=== PATIENT | male | born 1960 | race Caucasian/White ===

== ENCOUNTER 2018-01-13 15:05 | Inpatient (IN) ==
[2018-01-13] MEDS ORDERED: ONDANSETRON 4 MG/2 ML VIAL IV PRN (20:36)
[2018-01-13] MEDS ORDERED: MORPHINE 2 MG/1 ML SYRINGE IV PRN (20:36)
[2018-01-13 21:18] LABS: Basophils # 0.1 10*3/uL (0.0-0.2); Basophils % 1.3 % (0.0-0.8); Eosinophils # 0.3 10*3/uL (0.0-0.87); Eosinophils % 3.4 % (0.00-10.9); Hematocrit 35.6 VOL% (42.0-52.0); Hemoglobin 11.8 GM/DL (14.0-18.0); Immature Granulocytes % 0.4 %; Immature Granulocytes Absolute 0.04 #; Lymphocytes % 20.7 % (21.2-54.2); Mean Corpuscular HGB Conc 33.1 GM/DL (32-36); Mean Corpuscular Hemoglobin 28 PG (27-34); Mean Platelet Volume 9.6 FL (9.6-12.0); Monocytes % 10.5 % (1.7-12.7); Neutrophils % 63.7 % (38.7-73.9); Platelet Count 404 T/CUMM (130-400); Red Blood Count 4.24 MC/CUMM (3.8-5.5); Red Cell Distribution Width 14.1 % (9.3-17.3); White Blood Count 9.5 T/CUMM (4-12)
[2018-01-13 21:47] LABS: Alanine Aminotransferase 15 U/L (16-61); Albumin 3.6 G/DL (3.4-5.0); Alkaline Phosphatase 97 U/L (45-117); Aspartate Amino Transferase 20 U/L (0-37); Bilirubin,Total < 0.39 MG/DL (0.2-1.0); Blood Urea Nitrogen 17 MG/DL (7-18); Calcium 9.5 MG/DL (8.5-10.1); Cholesterol 154 MG/DL (50-200); Glucose 98 MG/DL (74-106); HDL Cholesterol 38 MG/DL (40-60); Osmolality,Calculated 276.7 MOS/KG (273-304); Potassium 3.9 MMOL/L (3.5-5.1); Risk Ratio 4.05; Sodium 138 MMOL/L (136-145); Total Protein 7.5 G/DL (6.4-8.3); Triglycerides 81 MG/DL (2-150); VLDL CHOLESTEROL 16.2 MG/DL
[2018-01-13] MEDS: levETIRAcetam 500 MG TABLET PO SCH (22:07)
[2018-01-13] MEDS: risperiDONE 0.5 MG TABLET PO SCH (22:08)
[2018-01-13] MEDS: SODIUM CHLORIDE 0.9% 1,000 ML IV SCH (22:37)
[2018-01-14] MEDS: PANTOPRAZOLE 40 MG VIAL IV SCH (09:15)
[2018-01-14] MEDS: ATORVASTATIN 80 MG TABLET PO SCH (09:15)
[2018-01-14] MEDS: amLODIPine 5 MG TABLET PO SCH (09:17)
[2018-01-14] MEDS: FLUoxetine 10 MG CAPSULE PO SCH (09:17)
[2018-01-14] MEDS: levETIRAcetam 500 MG TABLET PO SCH ×2 (09:17→21:56)
[2018-01-14] MEDS: TAMSULOSIN 0.4 MG CAPSULE PO SCH (09:17)
[2018-01-14] MEDS: ASPIRIN 325 MG TABLET PO SCH (09:17)
[2018-01-14] MEDS: CLOPIDOGREL 75 MG TABLET PO SCH (09:21)
[2018-01-14] MEDS: ENOXAPARIN 40 MG/0.4 ML SYRINGE SUBCUT SCH (09:21)
[2018-01-14] MEDS: SODIUM CHLORIDE 0.9% 1,000 ML IV SCH ×3 (09:22→21:27)
[2018-01-14] MEDS: risperiDONE 0.5 MG TABLET PO SCH (21:56)
[2018-01-15] MEDS: SODIUM CHLORIDE 0.9% 1,000 ML IV SCH ×2 (07:13→13:41)
[2018-01-15] MEDS: ATORVASTATIN 80 MG TABLET PO SCH (08:59)
[2018-01-15] MEDS: amLODIPine 5 MG TABLET PO SCH ×2 (08:59→20:29)
[2018-01-15] MEDS: CLOPIDOGREL 75 MG TABLET PO SCH (08:59)
[2018-01-15] MEDS: ASPIRIN 325 MG TABLET PO SCH (08:59)
[2018-01-15] MEDS: levETIRAcetam 500 MG TABLET PO SCH ×2 (08:59→20:29)
[2018-01-15] MEDS: FLUoxetine 10 MG CAPSULE PO SCH (08:59)
[2018-01-15] MEDS: TAMSULOSIN 0.4 MG CAPSULE PO SCH (09:00)
[2018-01-15] MEDS: ENOXAPARIN 40 MG/0.4 ML SYRINGE SUBCUT SCH (09:07)
[2018-01-15] MEDS: PANTOPRAZOLE 40 MG VIAL IV SCH (09:08)
[2018-01-15] MEDS: risperiDONE 0.5 MG TABLET PO SCH (20:29)
[2018-01-16] MEDS: SODIUM CHLORIDE 0.9% 1,000 ML IV SCH ×3 (03:51→14:38)
[2018-01-16] MEDS: ATORVASTATIN 80 MG TABLET PO SCH (09:27)
[2018-01-16] MEDS: ASPIRIN 325 MG TABLET PO SCH (09:27)
[2018-01-16] MEDS: TAMSULOSIN 0.4 MG CAPSULE PO SCH (09:27)
[2018-01-16] MEDS: CLOPIDOGREL 75 MG TABLET PO SCH (09:27)
[2018-01-16] MEDS: ENOXAPARIN 40 MG/0.4 ML SYRINGE SUBCUT SCH (09:27)
[2018-01-16] MEDS: amLODIPine 5 MG TABLET PO SCH (09:27)
[2018-01-16] MEDS: PANTOPRAZOLE 40 MG VIAL IV SCH (09:27)
[2018-01-16] MEDS: levETIRAcetam 500 MG TABLET PO SCH (09:27)
[2018-01-16] MEDS: FLUoxetine 10 MG CAPSULE PO SCH (09:28)
[2018-01-16 12:04] VITALS: BP 159/107
== END 2018-01-16 15:19 | disposition home or self-care (01) | DRG 66 ==
LOC: N.2E 19:20 → SUATTDRO 19:20
PROVIDERS: ADMIT Family Medicine; ATTEND Internal Medicine Infectious Disease

== ENCOUNTER 2018-07-31 10:56 | Inpatient (IN) ==
[2018-07-31 11:43] LABS: Basophils % 0.1 % (0.0-0.8); Hematocrit 23.5 VOL% (42.0-52.0); Immature Granulocytes % 0.6 %; Immature Granulocytes Absolute 0.09 #; Lymphocytes # 0.6 10*3/uL (1.4-4.0); Lymphocytes % 4.3 % (21.2-54.2); Mean Corpuscular Hemoglobin 34 PG (27-34); Mean Corpuscular Volume 98.7 FL (87-102); Mean Platelet Volume 9.7 FL (9.6-12.0); Monocytes # 1.1 10*3/uL (0.11-0.8); Monocytes % 7.9 % (1.7-12.7); Neutrophils # 12.1 10*3/uL (1.4-7.4); Neutrophils % 87.1 % (38.7-73.9); Platelet Count 318 T/CUMM (130-400); Red Blood Count 2.38 MC/CUMM (3.8-5.5); Red Cell Distribution Width 14.6 % (9.3-17.3); White Blood Count 13.9 T/CUMM (4-12)
[2018-07-31 12:08] LABS: Band Neutrophils 1 % (0-10); Lymphocytes 5 % (20-55); Platelet Estimate Adequate; Segmented Neutrophils 87 % (50-85); Total Cells Counted 100
[2018-07-31 12:09] LABS: Hypochromasia 1+
[2018-07-31 12:25] LABS: Albumin 2.6 G/DL (3.4-5.0); Bilirubin,Total 0.7 MG/DL (0.2-1.0); Calcium 8.5 MG/DL (8.5-10.1); Osmolality,Calculated 324.6 MOS/KG (273-304); Potassium 3.4 MMOL/L (3.5-5.1); Total Protein 5.2 G/DL (6.4-8.3)
[2018-07-31 13:01] LABS: PT Patient Result 10.9 SECS; Partial Thromboplastin Time 23.8 SECS (0-40)
[2018-07-31 17:40] LABS: Hematocrit 19.5 VOL% (42.0-52.0)
[2018-07-31 18:04] LABS: Hemoglobin 6.6 GM/DL (14.0-18.0)
[2018-07-31 20:34] LABS: Hematocrit 18.9 VOL% (42.0-52.0)
[2018-07-31 20:36] LABS: Hemoglobin 6.3 GM/DL (14.0-18.0)
[2018-08-01 08:09] LABS: Hemoglobin 8.2 GM/DL (14.0-18.0)
[2018-08-01 08:21] LABS: Basophils % 0.4 % (0.0-0.8); Eosinophils # 0.1 10*3/uL (0.0-0.87); Eosinophils % 1.1 % (0.00-10.9); Hemoglobin 8.7 GM/DL (14.0-18.0); Immature Granulocytes % 0.7 %; Immature Granulocytes Absolute 0.07 #; Lymphocytes # 1.1 10*3/uL (1.4-4.0); Lymphocytes % 10.8 % (21.2-54.2); Mean Corpuscular HGB Conc 33.5 GM/DL (32-36); Mean Corpuscular Hemoglobin 33 PG (27-34); Mean Corpuscular Volume 97.4 FL (87-102); Mean Platelet Volume 9.6 FL (9.6-12.0); Monocytes # 0.7 10*3/uL (0.11-0.8); Neutrophils # 8.1 10*3/uL (1.4-7.4); Red Blood Count 2.67 MC/CUMM (3.8-5.5); Red Cell Distribution Width 15.8 % (9.3-17.3); White Blood Count 10.1 T/CUMM (4-12)
[2018-08-01 08:23] LABS: Platelet Count 177 T/CUMM (130-400)
[2018-08-01 08:48] LABS: Albumin 2.5 G/DL (3.4-5.0); Bilirubin,Total 0.7 MG/DL (0.2-1.0); Osmolality,Calculated 299.8 MOS/KG (273-304); Total Protein 5.4 G/DL (6.4-8.3)
[2018-08-02 06:16] LABS: Basophils # 0.1 10*3/uL (0.0-0.2); Basophils % 1.1 % (0.0-0.8); Eosinophils # 0.1 10*3/uL (0.0-0.87); Eosinophils % 2.2 % (0.00-10.9); Hemoglobin 6.5 GM/DL (14.0-18.0); Immature Granulocytes % 0.4 %; Immature Granulocytes Absolute 0.02 #; Lymphocytes # 1.2 10*3/uL (1.4-4.0); Lymphocytes % 25.7 % (21.2-54.2); Mean Corpuscular HGB Conc 32.5 GM/DL (32-36); Mean Corpuscular Hemoglobin 32 PG (27-34); Mean Corpuscular Volume 98.5 FL (87-102); Mean Platelet Volume 10.1 FL (9.6-12.0); Monocytes # 0.5 10*3/uL (0.11-0.8); Monocytes % 11.3 % (1.7-12.7); Neutrophils # 2.7 10*3/uL (1.4-7.4); Neutrophils % 59.3 % (38.7-73.9); Platelet Count 132 T/CUMM (130-400); Red Blood Count 2.03 MC/CUMM (3.8-5.5); Red Cell Distribution Width 15.8 % (9.3-17.3); White Blood Count 4.5 T/CUMM (4-12)
[2018-08-02 06:41] LABS: Calcium 7.4 MG/DL (8.5-10.1); Osmolality,Calculated 289.8 MOS/KG (273-304); Potassium 3.4 MMOL/L (3.5-5.1)
[2018-08-02 07:43] LABS: Hematocrit 21.1 VOL% (42.0-52.0)
[2018-08-02 18:14] LABS: Hematocrit 26.9 VOL% (42.0-52.0)
[2018-08-02 18:15] LABS: Hemoglobin 8.9 GM/DL (14.0-18.0)
[2018-08-03 06:08] LABS: Basophils # 0.1 10*3/uL (0.0-0.2); Eosinophils # 0.2 10*3/uL (0.0-0.87); Eosinophils % 2.3 % (0.00-10.9); Hematocrit 28.3 VOL% (42.0-52.0); Hemoglobin 9.1 GM/DL (14.0-18.0); Immature Granulocytes % 0.4 %; Immature Granulocytes Absolute 0.03 #; Lymphocytes # 1.6 10*3/uL (1.4-4.0); Lymphocytes % 23.5 % (21.2-54.2); Mean Corpuscular HGB Conc 32.2 GM/DL (32-36); Mean Corpuscular Hemoglobin 31 PG (27-34); Mean Corpuscular Volume 95.9 FL (87-102); Mean Platelet Volume 10.3 FL (9.6-12.0); Monocytes # 0.7 10*3/uL (0.11-0.8); Monocytes % 9.8 % (1.7-12.7); Neutrophils # 4.3 10*3/uL (1.4-7.4); Platelet Count 167 T/CUMM (130-400); Red Blood Count 2.95 MC/CUMM (3.8-5.5); Red Cell Distribution Width 16.5 % (9.3-17.3); White Blood Count 6.9 T/CUMM (4-12)
[2018-08-03 06:30] LABS: Calcium 7.7 MG/DL (8.5-10.1)
[2018-08-04 05:49] LABS: Basophils # 0.1 10*3/uL (0.0-0.2); Basophils % 1.1 % (0.0-0.8); Eosinophils # 0.2 10*3/uL (0.0-0.87); Hemoglobin 9.7 GM/DL (14.0-18.0); Immature Granulocytes % 0.6 %; Immature Granulocytes Absolute 0.05 #; Lymphocytes # 0.9 10*3/uL (1.4-4.0); Lymphocytes % 11.2 % (21.2-54.2); Mean Corpuscular HGB Conc 34.6 GM/DL (32-36); Mean Corpuscular Hemoglobin 33 PG (27-34); Mean Platelet Volume 9.8 FL (9.6-12.0); Monocytes # 0.9 10*3/uL (0.11-0.8); Monocytes % 10.4 % (1.7-12.7); Neutrophils # 6.2 10*3/uL (1.4-7.4); Neutrophils % 74.7 % (38.7-73.9); Platelet Count 226 T/CUMM (130-400); Red Blood Count 2.98 MC/CUMM (3.8-5.5); Red Cell Distribution Width 16.5 % (9.3-17.3); White Blood Count 8.4 T/CUMM (4-12)
[2018-08-04 06:15] LABS: Calcium 7.9 MG/DL (8.5-10.1); Osmolality,Calculated 280.1 MOS/KG (273-304); Potassium 3.3 MMOL/L (3.5-5.1)
[2018-08-04 09:17] VITALS: BP 152/89
== END 2018-08-04 14:00 | disposition home or self-care (01) | DRG 242 ==
LOC: EDBD → EDUNIT# → N.ED 10:56 → SUATTDRO 13:45 → N.CC 13:45 → N.5E 08-01 18:55
PROVIDERS: ADMIT Family Medicine; ATTEND Internal Medicine